=== PATIENT | female | born 1995 | race African-American/Black ===

== ENCOUNTER → 2019-01-06 08:37 | Outpatient (CLI) | payer OTHER ==
[2014-08-29 02:11] VITALS: BMI 18.9
[~2019-01-06 08:37] MED LIST: FERROUS SULFAT325 MG PO; IBUPROFEN600 MG PO; PERCOCET 5-3251 TAB PO; PRENATAL COMPLE1 TAB PO; XANAX0.25 MG PO; ZOLOFT50 MG PO
== END | disposition home or self-care (01) ==
LOC: D.US 12-09 09:00
PROVIDERS: ATTEND Nurse Practitioner
DX: R10.30 Lower abdominal pain, unspecified (principal); N92.1 Excessive and frequent menstruation with irregular cycle

== ENCOUNTER → 2020-05-12 08:52 | Outpatient (CLI) | payer BC ==
[~2020-05-12] VITALS: Ht 162.6 cm; Wt 52.3 kg
[2020-05-12 13:36] VITALS: BP 110/67; Ht 162.6 cm; Wt 52.3 kg
--- NOTE | 2020-05-12 14:00 | NUR ---
UNABLE TO FEEL IMPACTION, SOAPSUDS ENEMA GIVEN, PASSING WATER. ANOTHER ENEMA GIVEN, AGAIN PASSED WATER. CHECKED AGAIN FOR IMPACTION, UNABLE TO FEEL ANY STOOL. SOAPSUDS ENEMA REPEATED
--- NOTE | 2020-05-12 14:24 | NUR ---
STILL NO STOOL AND NO IMPACTION FELT. DONI BRIGGS OFFICE NOTIFED, STATES TO PROCEED WITH DISCHARGE OF PATIENT, THEY WILL CONTACT HER
== END | disposition home or self-care (01) ==
LOC: D.RAD 08:00 → D.OPS 08:52 → D.RAD 09:00
PROVIDERS: ATTEND Nurse Practitioner
DX: K56.49 Other impaction of intestine (principal)

== ENCOUNTER 2020-06-16 16:30 | Outpatient (CLI) | payer BC, OTHER ==
[2020-05-12 13:36] VITALS: BMI 19.7
== END 2020-06-16 23:59 | disposition home or self-care (01) ==
LOC: D.MAMMO 16:30
PROVIDERS: ATTEND Nurse Practitioner
DX: N64.4 Mastodynia (principal)